=== PATIENT | female | born 1980 | race Two or more races ===

== ENCOUNTER 2018-09-22 21:08 | Emergency (ER) | payer BC ==
[~2018-09-22] VITALS: Ht 172.7 cm; Wt 156.5 kg
[2018-09-23 01:12] VITALS: BP 141/84
== END 2018-09-23 01:16 | disposition home or self-care (01) ==
LOC: ER 21:14
DX: R07.89 Other chest pain (principal); E66.9 Obesity, unspecified
CPT/HCPCS: 36415; 85378-TC